=== PATIENT | male | born 1995 | race Caucasian/White ===

== ENCOUNTER 2020-01-20 03:12 | Emergency (ER) | payer OTHER, SELFPAY ==
[~2020-01-20] VITALS: Ht 177.8 cm; Wt 65.0 kg
[~2020-01-20 03:12] MED LIST: IBUP400T OR; ZITH250T OR; [UNRECOGNIZED DRUG - OTHER]; omnicef OR
--- NOTE | 2020-01-20 06:00 | REPVR ---
PROCEDURE INFORMATION: Exam: XR Chest, 2 Views Exam date and time: 01/20/2020 5:38 AM Age: 24 years old Clinical indication: Other: Left sided chest pain TECHNIQUE: Imaging protocol: XR of the chest Views: 2 views. COMPARISON: CR Chest, 1 view 07/29/2013 6:46 PM FINDINGS: Lungs: Unremarkable. No consolidation. Pleural space: Unremarkable. No pleural effusion. No pneumothorax. Heart/Mediastinum: Unremarkable. No cardiomegaly. Bones/joints: Unremarkable. IMPRESSION: No acute findings. Electronically signed by: Cecilio Elaine On 01/20/2020 06:00:00 AM
[2020-01-20 06:42] VITALS: BP 132/72
--- NOTE | 2020-01-20 17:02 | ECGEPIP ---
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
== END 2020-01-20 06:49 | disposition home or self-care (01) ==
LOC: M ED 03:12
DX: R07.9 Chest pain, unspecified (principal); R11.0 Nausea; F17.290 Nicotine dependence, other tobacco product, uncomplicated

== ENCOUNTER → 2020-03-21 | Outpatient (CLI) | payer SELFPAY ==
--- NOTE | 2020-03-21 18:51 | REP ---
INDICATION: CHEST PAIN LEFT SIDE RECENT COVID 19 INFECTION COMPARISON: 01/20/2020 TECHNIQUE: PA and lateral. FINDINGS: The mediastinum and cardiac silhouette are normal. The lung suh are clear and without acute consolidation, effusion, or pneumothorax. The skeletal structures are intact and normal. IMPRESSION: No acute cardiopulmonary process. <Electronically signed by Иван Reza > 03/21/20 [id number]
== END ==
LOC: M RAD 18:20
PROVIDERS: ATTEND Physician Assistant
DX: R07.89 Other chest pain (principal); Z86.16 Personal history of COVID-19

== ENCOUNTER 2020-03-29 17:19 | Emergency (ER) | payer SELFPAY ==
[~2020-03-29] VITALS: Ht 177.8 cm; Wt 63.7 kg
[2020-03-29 17:20] VITALS: BP 120/68
--- OUTSIDE RECORDS SUMMARY | 2020-03-29 17:26 | CCD ---
Author Author [facility] Organization [facility] Address Unknown Phone Unavailable Care Team Providers Care Art Consultant Name Role Phone KELLEYE, Arianne GALLEGOS PA Unavailable Unavailable LETTIERE, A ROSY PA Unavailable Unavailable LETTIERE, A ROSY PA Unavailable Unavailable LETTIERE, A ROSY PA Unavailable Unavailable LETTIERE, A ROSY PA Unavailable Unavailable LETTIERE, A ROSY PA Unavailable Unavailable LETTIERE, A ROSY PA Unavailable Unavailable LETTIERE, A ROSY PA Unavailable Unavailable LETTIERE, A ROSY PA Unavailable Unavailable LETTIERE, A ROSY PA Unavailable Unavailable LETTIERE, A ROSY PA Unavailable Unavailable LETTIERE, A ROSY PA Unavailable Unavailable LETTIERE, A ROSY PA Unavailable Unavailable LETTIERE, A ROSY PA Unavailable Unavailable LETTIERE, A ROSY PA Unavailable Unavailable LETTIERE, A ROSY PA Unavailable Unavailable LETTIERE, A ROSY PA Unavailable Unavailable LETTIERE, A ROSY PA Unavailable Unavailable LETTIERE, A ROSY PA Unavailable Unavailable LETTIERE, A ROSY PA Unavailable Unavailable LETTIERE, A ROSY PA Unavailable Unavailable LETTIERE, A ROSY PA Unavailable Unavailable LETTIERE, A ROSY PA Unavailable Unavailable LETTIERE, A ROSY PA Unavailable Unavailable LETTIERE, A ROSY PA Unavailable Unavailable LETTIERE, A ROSY PA Unavailable Unavailable LETTIERE, A ROSY PA Unavailable Unavailable LETTIERE, A ROSY PA Unavailable Unavailable LETTIERE, A ROSY PA Unavailable Unavailable Re-disclosure Warning The records that you are about to access may contain information from federally-assisted alcohol or drug abuse programs. If such information is present, then the following federally mandated warning applies: This information has been disclosed to you from records protected by federal confidentiality rules (42 CFR part 2). The federal rules prohibit you from making any further disclosure of this information unless further disclosure is expressly permitted by the written consent of the person to whom it pertains or as otherwise permitted by 42 CFR part 2. A general authorization for the release of medical or other information is NOT sufficient for this purpose. The Federal rules restrict any use of the information to criminally investigate or prosecute any alcohol or drug abuse patient.The records that you are about to access may contain highly sensitive health information, the redisclosure of which is protected by Article 27-F of the [facility] Public Health law. If you continue you may have access to information: Regarding HIV / AIDS; Provided by facilities licensed or operated by the [facility] Office of Mental Health; or Provided by the [facility] Office for People With Developmental Disabilities. If such information is present, then the following [facility] mandated warning applies: This information has been disclosed to you from confidential records which are protected by state law. State law prohibits you from making any further disclosure of this information without the specific written consent of the person to whom it pertains, or as otherwise permitted by law. Any unauthorized further disclosure in violation of state law may result in a fine or prison sentence or both. A general authorization for the release of medical or other information is NOT sufficient authorization for further disc losure. Family History Family Member Name Family Member Gender Family Member Status Date o f Status Description Data Source(s) Unknown Unknown Problem [facility] ([facility], [facility]) Encounters Encounter Providers Location Date Indications Data Source(s ) Outpatient Attender: ROSY rivera 02/23/2020 04:15:00 PM EST MED[facility] ([facility]) Insurance Providers Payer name Policy type / Coverage type Policy ID Covered republican ID Covered republican's relationship to garcia Policy Garcia Plan Information SELF PAY ONLY [id number] SP [id number] [facility] O [id number] S [id number] [employer] [facility] [id number] MO[id number] [facility] [id number] MO[id number] [facility] [id number] MO2 [id number] [facility] Health Maintenance Organization (HMO) [id number] 401 Family Dependent [id number] [facility] [id number] MO2 [id number] Self Pay P UNAVAILABLE S UNAVAILA BLE S/[employer] Commercial Family Depend ent [employer] P [id number] S [id number] Self Pay P na S na [employer] P [id number] S [id number] [facility] P [id number] C [id number] SELF PAY UNAVAILABLE UNAVAILA BLE [employer] BCYO S UNAVAILABLE S UNAV AILABLE [facility] O [id number] S [id number] [facility] P [id number] O [id number] [employer] [place] 306/806 [id number] MO2 [id number] EXCELLUS BCBS S [id number] C [id number] [id number] [employer] [place] 306/8 P [id number] C [id number] Results ID Date Data Source [id number] 02/23/2020 12:00:00 AM EST [facility] Name Value Range Interpretation Code Description Data Zelda rce(s) Supporting Document(s) SARS-CoV2 Rapid Antigen [facility] This lab was reported by [facility]. Procedure Vital Signs ID Date Data Source UNK Name Value Range Interpretation Code Description Data Source(s) Body mass index (BMI) [Ratio] 20.8 kg/m2 20.8 k g/m2 [facility] Body height 70 [in_i] 70 [in_i] [facility] 5'10" Body weight 145.00 [lb_av] 145.00 [lb_av] [facility] T ([facility]) Body temperature 99.3 [degF] 99.3 [degF] [facility] Oxygen saturation in Arterial blood by Pulse oximetry 98 % 98 % [facility] ([facility] Respiratory rate 14 /min 14 /min [facility] ( [facility]) Heart rate 90 /min 90 /min [facility]) Diastolic blood pressure 66 mm[Hg] 66 mm[Hg] [facility] ([facility], [facility]) Systolic blood pressure 103 mm[Hg] 103 mm[Hg] [facility] ([facility], [facility])
--- OUTSIDE RECORDS SUMMARY | 2020-03-29 17:26 | CCD | Continuity of Care Document ---
Author Author Donal PAUL Organization Unknown Address [address] [place] [address] [place] [address] Phone [phone] Care Team Providers Care Load Out Worker Name Role Phone Rodrick Co Publi AUTM [phone] Problems Description No Information Available Social History Type Date Description Comments Sex Unknown ETOH Use Denies alcohol use Tobacco Use Start: Unknown End: Unknown Patient is a former smoker Tobacco Use Start: Unknown Patient Currently Vapes 3% Nicot ine Smoking Status Reviewed: 02/23/20 Patient Currently Vapes 3% Ni cotine Allergies, Adverse Reactions, Alerts Active Allergies Reaction Severity Comments Date NKDA 12/13/2014 Mushrooms 01/12/2017 Medications Description No Active Medications Immunizations Description No Information Available Vital Signs Date Vital Result Comment 02/23/2020 4:49pm BP Systolic 103 mmHg BP Diastolic 66 mmHg Heart Rate 90 /min Respiratory Rate 14 /min O2 % BldC Oximetry 98 % Body Temperature 99.3 F Weight 145.00 lb Height 70 inches 5'10" BMI (Body Mass Index) 20.8 kg/m2 Pain Level 4 01/12/2017 12:55pm BP Systolic 105 mmHg BP Diastolic 72 mmHg Heart Rate 67 /min Respiratory Rate 18 /min O2 % BldC Oximetry 99 % Body Temperature 97.1 F Weight 130.00 lb Height 70 inches 5'10" BMI (Body Mass Index) 18.7 kg/m2 Pain Level 3 Results Description No Information Available Procedures Description No Information Available Medical Devices Description No Information Available Encounters Type Date Location Provider Dx Diagnosis Office Visit 02/23/2020 5:15p Main Office HAL Ybarra U07 .1 Covid-19 Z20.828 Contact w and exposure to ot h viral communicable diseases Assessments Date Code Description Provider 02/23/2020 U07.1 Covid-19 HAL Yu 02/23/2020 Z20.828 Contact with and (rich spected) exposure to other viral communicable diseases HAL Ybarra Plan of Treatment No Information Available Functional Status Description No Information Available Mental Status Description No Information Available Referrals Description No Information Available
--- OUTSIDE RECORDS SUMMARY | 2020-03-29 17:26 | CCD | Continuity of Care Document ---
Author Author Donal PAUL Organization Unknown Address [address] [place] [address] [place] [address] Phone [phone] Care Team Providers Care Custom Miller Name Role Phone Rodrick Co Publi AUTM [phone] Problems Description No Information Available Social History [...]
--- NOTE | 2020-03-29 18:03 | REP ---
INDICATION: CHEST PAIN COMPARISON: 03/21/2020. TECHNIQUE: PA/Lateral FINDINGS: Lungs: Clear, no infiltrate. Heart: Normal in size. Mediastinum: Mediastinal silhouette unremarkable. Pleural angles: Unremarkable.. Bones and soft tissues: Unremarkable. IMPRESSION: No acute pulmonary disease. <Electronically signed by Jw Mejía > 03/29/20 [id number]
--- NOTE | 2020-03-29 18:24 | ECGEPIP ---
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
--- OUTSIDE RECORDS SUMMARY | 2020-03-29 18:28 | CCD ---
Author Author [facility] Organization [facility] Address Unknown Phone Unavailable Care Team Providers Care Pressroom Foreman Name Role Phone KELLEYE, Arianne GALLEGOS PA [...] is protected by Article 27-F of the [facility] Public Health law. If you continue you may have access to information: Regarding HIV / AIDS; Provided by facilities licensed or operated by the [facility] Office of Mental Health; or Provided by the [facility] Office for People With Developmental Disabilities. If such information is present, then the following [facility] mandated warning applies: This information has been [...] law may result in a fine or fpc sentence or both. A general authorization for the release of medical or other information is NOT sufficient authorization for further disc losure. Family History Family Member Name Family Member Gender Family Member Status Date o f Status Description Data Source(s) Unknown Unknown Problem [facility] ([facility], [facility]) Encounters Encounter Providers Location Date Indications Data Source(s ) Outpatient Attender: ROSY rivera 02/23/2020 04:15:00 PM EST [facility] ([facility] [facility], [facility]) Insurance Providers Payer name Policy type / Coverage type Policy ID Covered libertarian ID Covered libertarian's relationship to garcia Policy Garcia Plan Information SELF PAY ONLY [id number] SP [id number] [facility] O [id number] S [id number] [employer] [place] [facility] [id number] MO2 [id number] [facility] [id number] MO2 [id number] [facility] [id number] MO2 [id number] [employer] Health Maintenance Organization (HMO) [id number] 401 Family Dependent [id number] [facility] [id number] MO2 [id number] Self Pay P UNAVAILABLE S UNAVAILA BLE S/[employer] Commercial Family Depend ent [employer] P [id number] S [id number] Self Pay P na S na [employer] P [id number] S [id number] [facility] P [id number] C [id number] SELF PAY UNAVAILABLE UNAVAILA BLE [employer] BCYO S UNAVAILABLE S UNAV AILABLE [facility] O [id number] S [id number] [facility] Care P [id number] O [id number] [employer] [place] 306/806 [id number] MO2 [id number] EXCELLUS BCBS S [id number] C [id number] [id number] [employer] [place] 306/8 P [id number] C [id number] Results ID Date Data Source [id number] 02/23/2020 12:00:00 AM EST [facility] Name Value Range Interpretation Code Description Data Zelda rce(s) Supporting Document(s) SARS-CoV2 Rapid Antigen [facility] This lab was reported by [facility]. Procedure Vital Signs ID Date Data Source UNK Name Value Range Interpretation Code Description Data Source(s) Body mass index (BMI) [Ratio] 20.8 kg/m2 20.8 k g/m2 [facility] Body height 70 [in_i] 70 [in_i] [facility] ([facility]) 5'10" Body weight 145.00 [lb_av] 145.00 [lb_av] [facility] T ([facility]) Body temperature 99.3 [degF] 99.3 [degF] [facility] ([facility]) Oxygen saturation in Arterial blood by Pulse oximetry 98 % 98 % [facility] ([facility]) Respiratory rate 14 /min 14 /min [facility] ( [facility]) Heart rate 90 /min 90 /min [facility] ([facility], [facility]) Diastolic blood pressure 66 mm[Hg] 66 mm[Hg] [facility] ([facility], [facility]) Systolic blood pressure 103 mm[Hg] 103 mm[Hg] [facility] ([facility], [facility])
[2020-03-29 18:29] LABS: BASO % 0.7 % (0.0-1.0); EOS % 0.7 % (0.0-3.0); HEMATOCRIT 43.8 % (42.0-52.0); HEMOGLOBIN 14.8 g/dl (13.5-17.5); LYMPH # 1.9 10^3/uL (1.5-5.0); MEAN CORPUSCULAR HEMOGLOBIN 28.2 pg (27.0-33.0); MEAN CORPUSCULAR HGB CONC 33.8 g/dl (32.0-36.5); MEAN CORPUSCULAR VOLUME 83.6 fl (80.0-96.0); MONO # 0.4 10^3/uL (0.0-0.8); MONO % 6.9 % (0.0-5.0); NEUTROPHILS # 3.2 10^3/uL (1.5-8.5); NEUTROPHILS % 57.5 % (36.0-66.0); PLATELET COUNT, AUTOMATED 187 10^3/uL (150-450); RED BLOOD COUNT 5.24 10^6/uL (4.30-6.10); WHITE BLOOD COUNT 5.5 10^3/uL (4.0-10.0)
[2020-03-29 18:43] VITALS: O2SAT 94
[2020-03-29 18:50] LABS: ERYTHROCYTE SEDIMENTATION RATE 2 mm/hr (0-15)
[2020-03-29 18:56] LABS: BLOOD UREA NITROGEN 9 MG/DL (7-18); CALCIUM LEVEL 9.3 MG/DL (8.5-10.1); CARBON DIOXIDE LEVEL 29 MEQ/L (21-32); CHLORIDE LEVEL 105 MEQ/L (98-107); CK-MB VALUE MASS < 1.0 NG/ML (<3.6); CPK CREATINE PHOSPHOKINASE 73 U/L (39-308); CREATININE FOR GFR 1.02 MG/DL (0.70-1.30); FREE T4 1.18 NG/DL (0.76-1.46); GLOMERULAR FILTRATION RATE > 60.0 (>60); GLUCOSE, FASTING 94 MG/DL (70-100); MB/CK RELATIVE INDEX 1.37 (< OR =4); NT-PRO BNP 17 PG/ML (<125); POTASSIUM SERUM 4.1 MEQ/L (3.5-5.1); SODIUM LEVEL 140 MEQ/L (136-145); TROPONIN I < 0.02 NG/ML (< 0.10)
[2020-03-29] MEDS ORDERED: ISOVUE-370 76% 100ML VIAL As Ordered ONE (19:03)
--- NOTE | 2020-03-29 19:54 | REPVR ---
PROCEDURE INFORMATION: Exam: CT Angiography Chest With Contrast Exam date and time: 03/29/2020 7:11 PM Age: 24 years old Clinical indication: Chest pain; Type not specified; Additional info: Cp, pleuritic cp, elevated dimer TECHNIQUE: Imaging protocol: Computed tomographic angiography of the chest with intravenous contrast. 3D rendering (Not supervised by radiologist): MIP and/or 3D reconstructed images were created by the technologist. Radiation optimization: All CT scans at this facility use at least one of these dose optimization techniques: automated exposure control; mA and/or kV adjustment per patient size (includes targeted exams where dose is matched to clinical indication); or iterative reconstruction. Contrast material: ISOVUE 370; Contrast volume: 75 ml; Contrast route: INTRAVENOUS (IV); COMPARISON: CT ANGIO CHEST 07/29/2013 8:05 PM FINDINGS: Pulmonary arteries: Normal. No pulmonary emboli. Aorta: Unremarkable. No aortic aneurysm. No aortic dissection. Lungs: No consolidation. No masses. Minimal dependent atelectasis posteriorly in the left lower lobe. Pleural space: Unremarkable. No pneumothorax. No pleural effusion. Heart: Unremarkable. No cardiomegaly. No pericardial effusion. Lymph nodes: Unremarkable. No enlarged lymph nodes. Bones/joints: Unremarkable. No acute fracture. Soft tissues: Unremarkable. IMPRESSION: No pulmonary emboli or pneumonia. Minimal dependent atelectasis posteriorly in the left lower lobe. Electronically signed by: Hailey Quinn On 03/29/2020 19:54:20 PM
[2020-03-29] MEDS ORDERED: ALPRAZolam 0.5 MG TAB PO ONE (20:15)
[2020-03-29] MEDS ORDERED: PROAAER10 INH (21:07)
== END 2020-03-29 22:01 | disposition home or self-care (01) ==
LOC: M ED 17:19
DX: R07.9 Chest pain, unspecified (principal); I45.19 Other right bundle-branch block; Z86.19 Personal history of other infectious and parasitic diseases; Z87.01 Personal history of pneumonia (recurrent); Z87.891 Personal history of nicotine dependence
CPT/HCPCS: 71046; 71275; 80048; 82550; 82553; 83880; 84439; 84443; 84484; 85025; 85379; 85652; 86140; 93005; 99284; Q9967

== ENCOUNTER 2020-04-07 16:47 | Emergency (ER) | payer SELFPAY ==
[~2020-04-07] VITALS: Ht 177.8 cm; Wt 61.6 kg
[~2020-04-07 16:47] MED LIST changes: +PROAAER10 INH
[2020-04-07] MEDS ORDERED: NS 1,000 ML IV ONE ×2 (17:15→19:00)
--- NOTE | 2020-04-07 17:36 | REPVR ---
PROCEDURE INFORMATION: Exam: XR Chest, 1 View Exam date and time: 04/07/2020 5:12 PM Age: 24 years old Clinical indication: Chest pain; Type not specified TECHNIQUE: Imaging protocol: XR of the chest Views: Frontal portable upright view of the chest. COMPARISON: CR Chest, 2 view PA, Lat 03/21/2020 6:36 PM FINDINGS: Tubes, catheters and devices: EKG leads are present overlying the chest. Lungs: Mild pulmonary hyperexpansion. The lungs are otherwise clear bilaterally. The pulmonary vasculature is normal. Pleural space: Minimal left pleural effusion. No pneumothorax. Heart/Mediastinum: The heart is normal in size and contour. Bones/joints: No acute chest wall abnormality identified. IMPRESSION: 1. Mild pulmonary hyperexpansion. 2. Minimal left pleural effusion. Electronically signed by: Sebastian Mata On 04/07/2020 17:35:45 PM
[2020-04-07 17:51] LABS: ALBUMIN 4.8 GM/DL (3.2-5.2); ALT/SGPT 31 U/L (12-78); BILIRUBIN,DIRECT 0.2 MG/DL (0.0-0.2); BILIRUBIN,TOTAL 0.5 MG/DL (0.2-1.0); BLOOD UREA NITROGEN 7 MG/DL (7-18); CALCIUM LEVEL 9.7 MG/DL (8.5-10.1); CARBON DIOXIDE LEVEL 24 MEQ/L (21-32); CHLORIDE LEVEL 105 MEQ/L (98-107); CREATININE FOR GFR 1.11 MG/DL (0.70-1.30); GLOMERULAR FILTRATION RATE > 60.0 (>60); GLUCOSE, FASTING 103 MG/DL (70-100); POTASSIUM SERUM 3.6 MEQ/L (3.5-5.1); SODIUM LEVEL 141 MEQ/L (136-145); TOTAL PROTEIN 8.5 GM/DL (6.4-8.2)
[2020-04-07 17:56] LABS: BASO # 0.1 10^3/uL (0.0-0.2); BASO % 0.7 % (0.0-1.0); EOS # 0.1 10^3/uL (0.0-0.5); EOS % 0.7 % (0.0-3.0); HEMATOCRIT 42.9 % (42.0-52.0); HEMOGLOBIN 14.8 g/dl (13.5-17.5); LYMPH # 2.8 10^3/uL (1.5-5.0); LYMPH % 41.3 % (24.0-44.0); MEAN CORPUSCULAR HEMOGLOBIN 28.5 pg (27.0-33.0); MEAN CORPUSCULAR HGB CONC 34.5 g/dl (32.0-36.5); MEAN CORPUSCULAR VOLUME 82.7 fl (80.0-96.0); MONO # 0.5 10^3/uL (0.0-0.8); MONO % 7.2 % (0.0-5.0); NEUTROPHILS # 3.4 10^3/uL (1.5-8.5); NEUTROPHILS % 49.8 % (36.0-66.0); PLATELET COUNT, AUTOMATED 255 10^3/uL (150-450); RED BLOOD COUNT 5.19 10^6/uL (4.30-6.10); WHITE BLOOD COUNT 6.8 10^3/uL (4.0-10.0)
[2020-04-07] MEDS ORDERED: ISOVUE-370 76% 100ML VIAL As Ordered ONE (18:16)
[2020-04-07 18:28] LABS: AMPHETAMINES LEVEL URINE NEGATIVE (NEGATIVE); BARBITURATES URINE NEGATIVE (NEGATIVE); BENZODIAZEPINES URINE NEGATIVE (NEGATIVE); CANNABINOIDS URINE NEGATIVE (NEGATIVE); COCAINE METABOLITE URINE NEGATIVE (NEGATIVE); METHADONE URINE NEGATIVE (NEGATIVE); OPIATES URINE NEGATIVE (NEGATIVE); PHENCYCLIDINE URINE NEGATIVE (NEGATIVE)
--- NOTE | 2020-04-07 19:09 | REPVR ---
PROCEDURE INFORMATION: Exam: CT Angiography Chest With Contrast Exam date and time: 04/07/2020 6:22 PM Age: 24 years old Clinical indication: Other: Tachycardia; Additional info: Tachycardia, pleural effusion TECHNIQUE: Imaging protocol: Computed tomographic angiography of the chest with intravenous contrast. 3D rendering (Not supervised by radiologist): MIP and/or 3D reconstructed images were created by the technologist. Radiation optimization: All CT scans at this facility use at least one of these dose optimization techniques: automated exposure control; mA and/or kV adjustment per patient size (includes targeted exams where dose is matched to clinical indication); or iterative reconstruction. Contrast material: ISOVUE 370; Contrast volume: 75 ml; Contrast route: INTRAVENOUS (IV); COMPARISON: CT ANGIO CHEST 03/29/2020 7:13 PM FINDINGS: Pulmonary arteries: There are no pulmonary emboli. Aorta: There is no aortic dissection or aneurysm. Lungs: Atelectasis/scarring left lower lobe, stable in appearance in comparison to the prior study of 03/29/2020. Pleural space: Unremarkable. No pneumothorax. No pleural effusion. Heart: Unremarkable. No cardiomegaly. No pericardial effusion. Lymph nodes: Unremarkable. No enlarged lymph nodes. Bones/joints: Unremarkable. No acute fracture. Soft tissues: Unremarkable. IMPRESSION: 1. There is no aortic dissection or aneurysm. 2. There are no pulmonary emboli. 3. No acute pulmonary parenchymal abnormalities. Electronically signed by: Mendez Ruiz On 04/07/2020 19:08:43 PM
[2020-04-07] MEDS ORDERED: diazePAM 10MG/2ML SYRINGE (J3360 PER 5MG) IV ONE (19:30)
[2020-04-07 19:40] LABS: CK-MB VALUE MASS < 1.0 NG/ML (<3.6); CPK CREATINE PHOSPHOKINASE 77 U/L (39-308); TROPONIN I < 0.02 NG/ML (< 0.10)
--- NOTE | 2020-04-07 20:07 | ECGEPIP ---
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
--- NOTE | 2020-04-07 20:08 | ECGEPIP ---
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
[2020-04-07 20:27] VITALS: BP 114/62
== END 2020-04-07 20:51 | disposition home or self-care (01) ==
LOC: M ED 16:47
DX: F41.9 Anxiety disorder, unspecified (principal); F17.210 Nicotine dependence, cigarettes, uncomplicated
CPT/HCPCS: 71045; 71275; 80048; 80076; 80307; 82550; 82553; 84443; 84484; 85025; 93005; 93041; 94760; 96361; 96374; 99285; J3360; Q9967

== ENCOUNTER → 2020-04-30 | Outpatient (REF) | payer OTHER | LOC: M LAB REF 18:37 | PROVIDERS: ATTEND Internal Medicine Cardiovascular Disease | DX: R23.2 Flushing (principal) ==

== ENCOUNTER → 2020-05-10 | Outpatient (REF) | payer OTHER ==
[2020-05-10 18:31] LABS: BASO % 0.9 % (0.0-1.0); EOS # 0.1 10^3/uL (0.0-0.5); EOS % 1.7 % (0.0-3.0); HEMATOCRIT 42.6 % (42.0-52.0); HEMOGLOBIN 14.2 g/dl (13.5-17.5); LYMPH # 1.5 10^3/uL (1.5-5.0); LYMPH % 31.5 % (24.0-44.0); MEAN CORPUSCULAR HEMOGLOBIN 28.5 pg (27.0-33.0); MEAN CORPUSCULAR HGB CONC 33.3 g/dl (32.0-36.5); MEAN CORPUSCULAR VOLUME 85.5 fl (80.0-96.0); MONO # 0.4 10^3/uL (0.0-0.8); MONO % 7.5 % (2.0-8.0); NEUTROPHILS # 2.7 10^3/uL (1.5-8.5); NEUTROPHILS % 58.2 % (36.0-66.0); PLATELET COUNT, AUTOMATED 226 10^3/uL (150-450); RED BLOOD COUNT 4.98 10^6/uL (4.30-6.10); WHITE BLOOD COUNT 4.7 10^3/uL (4.0-10.0)
[2020-05-10 18:57] LABS: ERYTHROCYTE SEDIMENTATION RATE 5 mm/hr (0-15)
[2020-05-10 18:59] LABS: ALBUMIN 4.4 GM/DL (3.2-5.2); ALT/SGPT 29 U/L (12-78); BILIRUBIN,TOTAL 0.6 MG/DL (0.2-1.0); BLOOD UREA NITROGEN 11 MG/DL (7-18); CALCIUM LEVEL 9.2 MG/DL (8.5-10.1); CARBON DIOXIDE LEVEL 28 MEQ/L (21-32); CHLORIDE LEVEL 106 MEQ/L (98-107); CREATININE FOR GFR 0.95 MG/DL (0.70-1.30); GLOMERULAR FILTRATION RATE > 60.0 (>60); GLUCOSE, FASTING 85 MG/DL (70-100); SODIUM LEVEL 140 MEQ/L (136-145); THYROID STIMULATING HORMONE 0.928 uIU/ML (0.358-3.740); TOTAL PROTEIN 7.9 GM/DL (6.4-8.2)
== END ==
LOC: M LAB REF 17:19
PROVIDERS: ATTEND Pediatrics
DX: R53.81 Other malaise (principal)

== ENCOUNTER → 2020-05-21 | Outpatient (CLI) | payer OTHER ==
--- NOTE | 2020-05-21 10:13 | PFTRPT ---
Height: 70.00 Inches Weight: 130.00 Lbs BSA: 1.74 Diagnosis: R06.00 DATE: 05/21/2020 ORDERING PHYSICIAN: HAL Pritchard Pre and post bronchodilator studies have excellent technical quality. Some mild difficulty with effort is identified. Forced vital capacity reduced. FEV1 is in proportion. Obstructive index is therefore normal. Expiratory limit of the flow-volume loop does suggest suboptimal effort. No significant bronchodilator response is identified. Total lung capacity is normal. Residual volume borderline for air trapping. Diffusing capacity is normal and remains normal when corrected for alveolar volume. Hemoglobin is acceptable at 14.6. Airway resistance and conductance are normal. IMPRESSION: Cannot rule out a degree of underlying air trapping. Please correlate clinically. MTDD
== END ==
LOC: M CARPUL 09:29
PROVIDERS: ATTEND Physician Assistant
DX: R06.00 Dyspnea, unspecified (principal)

== ENCOUNTER 2020-06-01 15:46 | Emergency (ER) | payer OTHER ==
[~2020-06-01] VITALS: Ht 175.3 cm; Wt 56.8 kg
[2020-06-01] MEDS ORDERED: ESOM20CA25 (15:58)
[2020-06-01] MEDS ORDERED: FLUO10CA16 (15:58)
[2020-06-01] MEDS ORDERED: ASPIRIN 81 MG CHEW TABLET PO ONE (16:10)
--- NOTE | 2020-06-01 16:45 | REP ---
INDICATION: CHEST PAIN. COMPARISON: Portable chest dated 04/07/[address] dated 04/07/2020 TECHNIQUE: Portable AP chest with the patient sitting. FINDINGS: The lung suh are clear. Cardiac size is normal. The senait, mediastinum and skeletal structures are unremarkable. There is slight effacement of the left costophrenic angle. This is unchanged from the comparison portable chest. However, on the comparison CT performed the same date there was no pleural effusion. Therefore, this may represent pleural adhesion. IMPRESSION: Essentially portable chest <Electronically signed by Jw Pollard > 06/01/20 [id number]
[2020-06-01 16:56] LABS: BASO % 0.6 % (0.0-1.0); EOS # 0.1 10^3/uL (0.0-0.5); EOS % 1.2 % (0.0-3.0); HEMATOCRIT 44.5 % (42.0-52.0); HEMOGLOBIN 15.6 g/dl (13.5-17.5); LYMPH # 1.7 10^3/uL (1.5-5.0); LYMPH % 33.9 % (24.0-44.0); MEAN CORPUSCULAR HEMOGLOBIN 28.7 pg (27.0-33.0); MEAN CORPUSCULAR HGB CONC 35.1 g/dl (32.0-36.5); MEAN CORPUSCULAR VOLUME 81.8 fl (80.0-96.0); MONO # 0.5 10^3/uL (0.0-0.8); MONO % 9.3 % (2.0-8.0); NEUTROPHILS # 2.7 10^3/uL (1.5-8.5); NEUTROPHILS % 54.8 % (36.0-66.0); PLATELET COUNT, AUTOMATED 233 10^3/uL (150-450); RED BLOOD COUNT 5.44 10^6/uL (4.30-6.10)
[2020-06-01 17:04] LABS: AMPHETAMINES LEVEL URINE NEGATIVE (NEGATIVE); BARBITURATES URINE NEGATIVE (NEGATIVE); BENZODIAZEPINES URINE NEGATIVE (NEGATIVE); CANNABINOIDS URINE NEGATIVE (NEGATIVE); COCAINE METABOLITE URINE NEGATIVE (NEGATIVE); METHADONE URINE NEGATIVE (NEGATIVE); OPIATES URINE NEGATIVE (NEGATIVE); PHENCYCLIDINE URINE NEGATIVE (NEGATIVE)
[2020-06-01 17:23] LABS: INR 1.07; PROTHROMBIN TIME 14.1 SECONDS (12.5-14.3)
[2020-06-01 17:39] LABS: ALT/SGPT 18 IU/L (0-32); BLOOD UREA NITROGEN 9 MG/DL (7-18); CALCIUM LEVEL 8.9 MG/DL (8.5-10.1); CARBON DIOXIDE LEVEL 29 mmol/L (20-29); CHLORIDE LEVEL 107 MEQ/L (98-107); CPK CREATINE PHOSPHOKINASE 38 U/L (39-308); CREATININE FOR GFR 0.82 MG/DL (0.70-1.30); GLOMERULAR FILTRATION RATE > 60.0 (>60); GLUCOSE, FASTING 108 MG/DL (70-100); POTASSIUM SERUM 3.9 MEQ/L (3.5-5.1); SODIUM LEVEL 140 MEQ/L (136-145)
[2020-06-01 17:40] LABS: ALBUMIN 4.5 GM/DL (3.2-5.2); BILIRUBIN,DIRECT 0.2 MG/DL (0.0-0.2); BILIRUBIN,TOTAL 0.7 MG/DL (0.2-1.0); CK-MB VALUE MASS < 1.0 NG/ML (<3.6); LIPASE 146 U/L (73-393); MB/CK RELATIVE INDEX 2.63 (< OR =4); THYROXINE (T4) 8.9 UG/DL (4.5-12.0); TOTAL PROTEIN 7.9 GM/DL (6.4-8.2); TROPONIN I < 0.02 NG/ML (< 0.10)
[2020-06-01 17:41] LABS: THYROID STIMULATING HORMONE 0.651 uIU/ML (0.358-3.740)
[2020-06-01 17:48] LABS: FREE THYROXINE INDEX 3.4 % (1.4-3.8); T UPTAKE 38 % (33-40)
[2020-06-01 18:00] VITALS: BP 120/79
--- NOTE | 2020-06-02 08:19 | ECGEPIP ---
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
== END 2020-06-01 18:13 | disposition home or self-care (01) ==
LOC: M ED 15:46
DX: R00.2 Palpitations (principal); R63.4 Abnormal weight loss; J45.909 Unspecified asthma, uncomplicated

== ENCOUNTER → 2020-06-07 | Outpatient (CLI) | payer OTHER ==
[~2020-06-07] MED LIST changes: +ESOM20CA25; +FLUO10CA16
--- NOTE | 2020-06-07 14:12 | REP ---
INDICATION: PAIN IN LEFT ARM COMPARISON: None. TECHNIQUE: Real time compression and duplex Doppler evaluation of the Left upper extremity deep venous system is performed. FINDINGS: The Left subclavian, jugular, axillary, brachial, basilic and cephalic veins are fully compressible where accessible with transducer pressure, and demonstrate no intraluminal thrombus and normal venous waveforms. There is no evidence of deep venous thrombosis. IMPRESSION: No evidence of deep venous thrombosis of the Left upper extremity deep vein system. <Electronically signed by Jw Mejía > 06/07/20 [id number]
== END ==
LOC: M RAD 13:14
PROVIDERS: ATTEND Pediatrics
DX: M79.602 Pain in left arm (principal)

== ENCOUNTER → 2020-06-17 | Outpatient (REF) | payer OTHER | LOC: M LAB REF 16:22 | PROVIDERS: ATTEND Pediatrics | DX: R19.5 Other fecal abnormalities (principal) ==

== ENCOUNTER → 2020-07-05 | Outpatient (REF) | payer OTHER ==
[2020-07-05 17:24] LABS: FREE T4 1.08 NG/DL (0.76-1.46); THYROID STIMULATING HORMONE 1.07 uIU/ML (0.358-3.740)
== END ==
LOC: M LAB REF 16:21
PROVIDERS: ATTEND Pediatrics
DX: R63.5 Abnormal weight gain (principal)